=== PATIENT | male | born 1995 | race Caucasian/White ===

== ENCOUNTER → 2025-03-15 | Outpatient (CLI) | payer OTHER, SELFPAY ==
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
== END | disposition home or self-care (01) ==
LOC: SMRI 09:11
PROVIDERS: PCP Physician Assistant; Referring Provider Physician Assistant; Visit Provider Physician Assistant
DX: M25.472 Effusion, left ankle (principal); M76.822 Posterior tibial tendinitis, left leg; S93.402D Sprain of unspecified ligament of left ankle, subsequent encounter; V99.XXXD Unspecified transport accident, subsequent encounter
CPT/HCPCS: 73721